=== PATIENT | female | born 1955 | race Caucasian/White ===

== ENCOUNTER 2017-08-23 06:10 | Observation (INO) | payer BC ==
[~2017-08-23] VITALS: Ht 154.9 cm; Wt 79.3 kg
[2017-08-23] VITALS (13 sets, daily range): BP systolic 99–174; BP diastolic 65–101; PULSE 65–110; RESP 14–22; TEMP 98–99.6; O2SAT 89–95
[2017-08-23] MEDS ORDERED: SODIUM CHLORIDE 0.9% FLUSH 10 ML FLUSH IVF PRN (06:30)
[2017-08-23] MEDS ORDERED: ONDANSETRON HCL 4 MG/2 ML VIAL IV PUSH ONE (06:30)
[2017-08-23] MEDS: NITROGLYCERIN 0.4 MG SL 25 TABS/BTL SL SCH ×3 (06:40→06:46)
[2017-08-23] MEDS: SODIUM CHLOR 0.9% 1000 ML INJ 1,000 ML IV SCH ×2 (06:47→16:30)
[2017-08-23 06:57] LABS: CHLORIDE 107 MEQ/L (98-107); SODIUM (NA) 143 MEQ/L (136-145)
[2017-08-23 07:00] LABS: ALBUMIN 3.9 GM/DL (3.4-5.0); BICARBONATE 30.2 MEQ/L (21.0-32.0); CALCIUM 9.1 MG/DL (8.5-10.1)
--- NOTE | 2017-08-23 07:00 | PD ---
HPI Chief Complaint: Chest pain Time Seen by Provider: 06:29 Travel History International Travel<30 days: No Contact w/Intl Traveler<30days: No Traveled to known affect area: No History of Present Illness HPI 62-year-old female presents to the emergency department by private transportation the care of her spouse for complaint of upper chest pain and throat pain radiating into her upper back. Symptoms awaken her from sleep at 2 AM. Patient denies any shortness of breath sweats referred shoulder arm or abdominal pain but does complain of neck pain and upper back pain. Patient is visiting from out of town and will be in the area for 2 months. Patient denies any lower extremity pain or swelling. No personal history of hypertension dyslipidemia diabetes tobaccoism or clotting disorder. Patient does report history of esophageal spasm and hiatal hernia. Patient's had no recent respiratory illness or productive cough or fever. Patient rates pain 8/10 in intensity. Patient has taken Tums without relief. Patient is allergic to aspirin causes anaphylaxis. PFSH Past Medical History Narrative Medical GERD, hiatal hernia; no tobacco use; nursing notes reviewed Social History Tobacco Use: No Allergies-Medications (Allergen,Severity, Reaction): Coded Allergies: aspirin (Verified Allergy, Unknown, Anaphylaxis, 08/23/17) Reported Meds & Prescriptions Reported Meds & Active Scripts Active [place] (Hydrocodone-Acetaminophen) 5 Mg-325 Mg Tab 1 Tab PO Q6H PRN Reported Pantoprazole (Pantoprazole Sodium) 40 Mg Tab 40 Mg PO DAILY Symbicort Inh (Budesonide/Formoterol Fumarate) 80-4.5 Mcg/Act Aero 2 Puff INH Q12HR Narrative Medication None Review of Systems Except as stated in HPI: all other systems reviewed are Neg General / Constitutional: No: Fever, Chills HENT: No: Congestion Cardiovascular: Positive: Chest Pain or Discomfort, No: Diaphoresis Respiratory: No: Cough, Shortness of Breath Gastrointestinal: No: Nausea, Vomiting Genitourinary: No: Dysuria, Flank Pain Musculoskeletal: No: Myalgias, Arthralgias, Cramping, Edema, Pain Skin: No Rash Neurologic: No: Weakness Psychiatric: Positive: Anxiety Hematologic/Lymphatic: No: Lymph Node Enlargement Physical Exam Narrative GENERAL: Well-developed well-nourished female in no acute distress or respiratory distress although does mildly anxious SKIN: Warm and dry. HEAD: Normocephalic. EYES: No scleral icterus. No injection or drainage. NECK: Supple, trachea midline. No JVD or lymphadenopathy. CARDIOVASCULAR: Regular rate and rhythm without murmurs, gallops, or rubs. RESPIRATORY: Breath sounds equal bilaterally. No accessory muscle use. GASTROINTESTINAL: Abdomen soft, non-tender, nondistended. MUSCULOSKELETAL: No cyanosis, or edema. Radial dorsalis pedis pulses 2+ to palpation bilaterally BACK: Nontender without obvious deformity. No CVA tenderness. Data Data Last Documented VS Vital Signs Date Time Temp Pulse Resp B/P (MAP) Pulse Ox O2 Delivery O2 Flow Rate FiO2 08/23/17 08:15 126/75 (92) 08/23/17 07:05 92 Non-Rebreather 15.00 08/23/17 07:05 22 08/23/17 06:57 65 08/23/17 06:15 98.0 Orders Orders Electrocardiogram (08/23/17 06:29) Ckmb (Isoenzyme) Profile (08/23/17 06:29) Complete Blood Count With Diff (08/23/17 06:29) Comprehensive Metabolic Panel (08/23/17 06:29) Magnesium (Mg) (08/23/17 06:29) Prothrombin Time / Inr (Pt) (08/23/17 06:29) Act Partial Throm Time (Ptt) (08/23/17 06:29) Troponin I (08/23/17 06:29) Ecg Monitoring (08/23/17 06:29) Bilateral Bp Monitoring (08/23/17 06:29) Iv Access Insert/Monitor (08/23/17:29) Oximetry (08/23/17 06:29) Oxygen Administration (08/23/17 06:29) Sodium Chloride 0.9% Flush (Ns Flush) (08/23/17 06:30) Nitroglycerin Sl (Nitrostat Sl) (08/23/17 06:30) Chest, Pa & Lat (08/23/17 06:29) Sodium Chlor 0.9% 1000 Ml Inj (Ns 1000 M (08/23/17 06:30) Ondansetron Inj (Zofran Inj) (08/23/17 06:30) Sodium Chlor 0.9% 1000 Ml Inj (Ns 1000 M (08/23/17 07:15) B-Type Natriuretic Peptide (08/23/17 07:42) Ct Pulmonary Angiogram (08/23/17 07:46) Iohexol 350 Inj (Omnipaque 350 Inj) (08/23/17 08:15) Admit Order (Ed Use Only) (08/23/17 10:05) Labs Laboratory Tests Test 08/23/17 06:36 White Blood Count 12.1 TH/MM3 Red Blood Count 4.91 MIL/MM3 Hemoglobin 14.8 GM/DL Hematocrit 44.6 % Mean Corpuscular Volume 90.9 FL Mean Corpuscular Hemoglobin 30.1 PG Mean Corpuscular Hemoglobin Concent 33.1 % Red Cell Distribution Width 13.1 % Platelet Count 324 TH/MM3 Mean Platelet Volume 7.5 FL Neutrophils (%) (Auto) 81.7 % Lymphocytes (%) (Auto) 10.9 % Monocytes (%) (Auto) 5.2 % Eosinophils (%) (Auto) 1.8 % Basophils (%) (Auto) 0.4 % Neutrophils # (Auto) 10.0 TH/MM3 Lymphocytes # (Auto) 1.3 TH/MM3 Monocytes # (Auto) 0.6 TH/MM3 Eosinophils # (Auto) 0.2 TH/MM3 Basophils # (Auto) 0.0 TH/MM3 CBC Comment DIFF FINAL Differential Comment Prothrombin Time 9.8 SEC Prothromb Time International Ratio 1.0 RATIO Activated Partial Thromboplast Time 23.1 SEC Blood Urea Nitrogen 12 MG/DL Creatinine 0.68 MG/DL Random Glucose 107 MG/DL Total Protein 8.3 GM/DL Albumin 3.9 GM/DL Calcium Level 9.1 MG/DL Magnesium Level 2.1 MG/DL Alkaline Phosphatase 103 U/L Aspartate Amino Transf (AST/SGOT) 24 U/L Alanine Aminotransferase (ALT/SGPT) 36 U/L Total Bilirubin 0.5 MG/DL Sodium Level 143 MEQ/L Potassium Level 3.7 MEQ/L Chloride Level 107 MEQ/L Carbon Dioxide Level 30.2 MEQ/L Anion Gap 6 MEQ/L Estimat Glomerular Filtration Rate 88 ML/MIN Total Creatine Kinase 81 U/L Troponin I LESS THAN 0.02 NG/ML B-Type Natriuretic Peptide 37 PG/ML MDM Medical Decision Making Medical Screen Exam Complete: Yes Emergency Medical Condition: Yes Medical Record Reviewed: Yes Interpretation(s) EKG sinus tachycardia rate 104 left axis deviation no acute ST elevation or injury pattern artifact is present at baseline Differential Diagnosis Atypical chest pain chest pain ACS WV aortic dissection PE cholecystitis choledocholithiasis pancreatitis peptic ulcer disease Narrative Course Patient placed on cardiac exercise physiologist with continuous pulse oximetry IV access obtained specimens collected and sent for resulting patient allergic to aspirin therefore not administered sublingual nitroglycerin 0.4 mg ordered to be administered every 5 minutes as needed for ongoing chest pain however is to hold for systolic pressure less than 100 mmHg patient has maintenance IV fluids at bedside should she become symptomatic or hypotensive after nitroglycerin. Patient after 2 nitroglycerin is chest pain-free 0/10 intensity however noted that her saturations decreased to 85% therefore was placed on nasal cannula without significant improvement and supplementally placed on nonrebreather mask ; no history of COPD prior history of asthma and will evaluate with CT pulmonary angiogram for PE. Care signed over to Dr. Palma Scripts Hydrocodone-Acetaminophen ([place]) 5 Mg-325 Mg Tab 1 TAB PO Q6H Y for PAIN, #12 TAB 0 Refills Prov: Mike Bermudez 08/23/17 Dorothy Valdez MD Aug 23, 2017 07:00
[2017-08-23 07:01] LABS: BLOOD UREA NITROGEN 12 MG/DL (7-18); GLUCOSE,RANDOM 107 MG/DL (74-106); MAGNESIUM 2.1 MG/DL (1.5-2.5); PROTHROMBIN TIME - PATIENT 9.8 SEC (9.8-11.6)
[2017-08-23 07:03] LABS: ALT (GPT) 36 U/L (10-53); AST (GOT) 24 U/L (15-37)
[2017-08-23 07:04] LABS: CREATININE 0.68 MG/DL (0.50-1.00); GLOMERULAR FILTRATION RATE 88 ML/MIN (>89)
[2017-08-23 07:05] LABS: TOTAL BILIRUBIN ADULT 0.5 MG/DL (0.2-1.0); TOTAL PROTEIN 8.3 GM/DL (6.4-8.2)
[2017-08-23] MEDS ORDERED: SYMB80AE INH (07:05)
[2017-08-23] MEDS ORDERED: PANT40TA3 PO (07:05)
[2017-08-23 07:06] LABS: ALKALINE PHOSPHATASE 103 U/L (45-117)
[2017-08-23 07:09] LABS: TROPONIN I LESS THAN 0.02 NG/ML (0.02-0.05)
[2017-08-23 07:10] LABS: BASOPHIL % 0.4 % (0.0-2.0); EOSINOPHIL # 0.2 TH/MM3 (0-0.4); EOSINOPHIL % 1.8 % (0.0-4.0); HEMATOCRIT 44.6 % (35.0-46.0); HEMOGLOBIN 14.8 GM/DL (11.6-15.3); LYMPH % 10.9 % (9.0-44.0); LYMPHOCYTE # 1.3 TH/MM3 (1.0-4.8); MEAN CELL VOLUME 90.9 FL (80.0-100.0); MEAN CORPUSCULAR HEMOGLOBIN 30.1 PG (27.0-34.0); MEAN CORPUSCULAR HGB CONC 33.1 % (32.0-36.0); MEAN PLATELET VOLUME 7.5 FL (7.0-11.0); MONO % 5.2 % (0.0-8.0); MONOCYTE # 0.6 TH/MM3 (0-0.9); NEUT % 81.7 % (16.0-70.0); PLATELET COUNT 324 TH/MM3 (150-450); RED BLOOD COUNT 4.91 MIL/MM3 (4.00-5.30); RED CELL DISTRIBUTION WIDTH 13.1 % (11.6-17.2); WHITE BLOOD COUNT 12.1 TH/MM3 (4.0-11.0)
[2017-08-23] MEDS ORDERED: SODIUM CHLOR 0.9% 1000 ML INJ 1,000 ML IV ONE (07:15)
--- NOTE | 2017-08-23 07:40 | RADRPT ---
EXAM DATE/TIME: 08/23/2017 06:39 [facility] COMPARISON: No previous studies available for comparison. INDICATIONS : Chest pain MEDICAL HISTORY : None. SURGICAL HISTORY : None. ENCOUNTER: Initial ACUITY: 1 day PAIN SCORE: 7/10 LOCATION: chest FINDINGS: There are atelectatic changes at the lung bases and cardiomegaly. No definite consolidation or effusi on. Osseous structures are intact. CONCLUSION: Mild basilar atelectatic changes. Kishor Naik MD on August 23, 2017 at 7:38 Board Certified Radiologist. This report was verified electronically.
[2017-08-23] MEDS ORDERED: IOHEXOL 350 MG/ML 10 ML VIAL (for RAD DIAG) IVCONTRAST ONE (08:15)
--- NOTE | 2017-08-23 08:36 | RADRPT ---
EXAM DATE/TIME: 08/23/2017 08:06 [facility] COMPARISON: No previous studies available for comparison. INDICATIONS : Chest pain and short of breath. IV CONTRAST: 65 cc Omnipaque 350 (iohexol) IV RADIATION DOSE: 16.37 CTDIvol (mGy) MEDICAL HISTORY : Asthma SURGICAL HISTORY : None. ENCOUNTER: Initial ACUITY: 1 day PAIN SCALE: 2/10 LOCATION: chest TECHNIQUE: Volumetric scanning of the chest was performed using a pulmonary embolism protocol MIP images were re constructed. Using automated exposure control and adjustment of the mA and/or kV according to patien t size, radiation dose was kept as low as reasonably achievable to obtain optimal diagnostic quality images. DICOM format image data is available electronically for review and comparison. Follow-up recommendations for detected pulmonary nodules are based at a minimum on nodule size and pa tient risk factors according to Fleischner Society Guidelines. FINDINGS: Minimal bibasilar clinical changes. There is no axillary adenopathy. There is no mediastinal adenopathy. There is no evidence of centra l pulmonary emboli Abdominal contents are unremarkable Review of bone windows reveals mild degenerative changes. CONCLUSION: Bibasilar parenchymal changes, no pulmonary emboli.. Ricki Arnett MD FACR on August 23, 2017 at 8:32 Board Certified Radiologist. This report was verified electronically.
--- NOTE | 2017-08-23 09:05 | PD ---
HPI Chief Complaint: Cardiac Complaint Time Seen by Provider: 07:45 Travel History International Travel<30 days: No Contact w/Intl Traveler<30days: No Traveled to known affect area: No History of Present Illness HPI 62-year-old female had presented with complaint of chest pain. She was seen initially by Dr. Valdez. Her EKG showed a normal sinus rhythm. Her troponin was normal. She did have some periods of hypoxia and a CTA has also been done which has been read as negative. The patient's pain responded well to nitrates. Plan was to admit the patient to the chest pain center for further evaluation of her chest pain the pain she had was in the upper chest. Patient thinks that this may be esophageal pain. She does have occasional dysphasia and feels like it was in the upper chest. PFSH Past Medical History Asthma: Yes Tetanus Vaccination: Unknown Influenza Vaccination: No Social History Alcohol Use: Yes (occ) Tobacco Use: No (quit 15 yrs ago) Substance Use: No Allergies-Medications (Allergen,Severity, Reaction): Coded Allergies: aspirin (Verified Allergy, Unknown, Anaphylaxis, 08/23/17) Reported Meds & Prescriptions Reported Meds & Active Scripts Active Reported Pantoprazole (Pantoprazole Sodium) 40 Mg Tab 40 Mg PO DAILY Symbicort Inh (Budesonide/Formoterol Fumarate) 80-4.5 Mcg/Act Aero 2 Puff INH Q12HR Physical Exam Narrative per Dr. Valdez's note Data Data Last Documented VS Vital Signs Date Time Temp Pulse Resp B/P (MAP) Pulse Ox O2 Delivery O2 Flow Rate FiO2 08/23/17 08:15 126/75 (92) 08/23/17 07:05 92 Non-Rebreather 15.00 08/23/17 07:05 22 08/23/17 06:57 65 08/23/17 06:15 98.0 Orders Orders Electrocardiogram (08/23/17 06:29) Ckmb (Isoenzyme) Profile (08/23/17 06:29) Complete Blood Count With Diff (08/23/17 06:29) Comprehensive Metabolic Panel (08/23/17 06:29) Magnesium (Mg) (08/23/17 06:29) Prothrombin Time / Inr (Pt) (08/23/17 06:29) Act Partial Throm Time (Ptt) (08/23/17 06:29) Troponin I (08/23/17 06:29) Ecg Monitoring (08/23/17 06:29) Bilateral Bp Monitoring (08/23/17 06:29) Iv Access Insert/Monitor (08/23/17 06:29) Oximetry (08/23/17 06:29) Oxygen Administration (08/23/17 06:29) Sodium Chloride 0.9% Flush (Ns Flush) (08/23/17 06:30) Nitroglycerin Sl (Nitrostat Sl) (08/23/17 06:30) Chest, Pa & Lat (08/23/17 06:29) Sodium Chlor 0.9% 1000 Ml Inj (Ns 1000 M (08/23/17 06:30) Ondansetron Inj (Zofran Inj) (08/23/17 06:30) Sodium Chlor 0.9% 1000 Ml Inj (Ns 1000 M (08/23/17 07:15) B-Type Natriuretic Peptide (08/23/17 07:42) Ct Pulmonary Angiogram (08/23/17 07:46) Iohexol 350 Inj (Omnipaque 350 Inj) (08/23/17 08:15) Admit Order (Ed Use Only) (08/23/17 10:05) Labs Laboratory Tests Test 08/23/17 06:36 White Blood Count 12.1 TH/MM3 Red Blood Count 4.91 MIL/MM3 Hemoglobin 14.8 GM/DL Hematocrit 44.6 % Mean Corpuscular Volume 90.9 FL Mean Corpuscular Hemoglobin 30.1 PG Mean Corpuscular Hemoglobin Concent 33.1 % Red Cell Distribution Width 13.1 % Platelet Count 324 TH/MM3 Mean Platelet Volume 7.5 FL Neutrophils (%) (Auto) 81.7 % Lymphocytes (%) (Auto) 10.9 % Monocytes (%) (Auto) 5.2 % Eosinophils (%) (Auto) 1.8 % Basophils (%) (Auto) 0.4 % Neutrophils # (Auto) 10.0 TH/MM3 Lymphocytes # (Auto) 1.3 TH/MM3 Monocytes # (Auto) 0.6 TH/MM3 Eosinophils # (Auto) 0.2 TH/MM3 Basophils # (Auto) 0.0 TH/MM3 CBC Comment DIFF FINAL Differential Comment Prothrombin Time 9.8 SEC Prothromb Time International Ratio 1.0 RATIO Activated Partial Thromboplast Time 23.1 SEC Blood Urea Nitrogen 12 MG/DL Creatinine 0.68 MG/DL Random Glucose 107 MG/DL Total Protein 8.3 GM/DL Albumin 3.9 GM/DL Calcium Level 9.1 MG/DL Magnesium Level 2.1 MG/DL Alkaline Phosphatase 103 U/L Aspartate Amino Transf (AST/SGOT) 24 U/L Alanine Aminotransferase (ALT/SGPT) 36 U/L Total Bilirubin 0.5 MG/DL Sodium Level 143 MEQ/L Potassium Level 3.7 MEQ/L Chloride Level 107 MEQ/L Carbon Dioxide Level 30.2 MEQ/L Anion Gap 6 MEQ/L Estimat Glomerular Filtration Rate 88 ML/MIN Total Creatine Kinase 81 U/L Troponin I LESS THAN 0.02 NG/ML B-Type Natriuretic Peptide 37 PG/ML MDM Medical Decision Making Medical Screen Exam Complete: Yes Emergency Medical Condition: Yes Medical Record Reviewed: Yes Differential Diagnosis Differential includes esophagitis, coronary artery disease, pulmonary embolus Narrative Course CTA is negative for PE. EKG shows sinus rhythm. Troponin is negative. Plan is to admit her to the chest pain center Diagnosis Primary Impression: Chest pain Admitting Information Admitting Physician Requests: Observation Cortez Jay MD Aug 23, 2017 09:05
[2017-08-23] MEDS ORDERED: REGADENOSON INJ 0.4 MG/5 ML SYR IV ONE (10:07)
[2017-08-23] MEDS ORDERED: SODIUM CHLOR 0.9% 1000 ML INJ 1,000 ML IV SCH (10:08)
[2017-08-23] MEDS ORDERED: SODIUM CHLORIDE 0.9% FLUSH 10 ML FLUSH IV FLUSH PRN (10:15)
[2017-08-23 11:02] LABS: TROPONIN I LESS THAN 0.02 NG/ML (0.02-0.05)
[2017-08-23] MEDS ORDERED: ONDANSETRON HCL 4 MG/2 ML VIAL IV PUSH PRN (12:00)
[2017-08-23 13:39] LABS: TROPONIN I LESS THAN 0.02 NG/ML (0.02-0.05)
--- NOTE | 2017-08-23 14:53 | EKG ---
Date Performed: 08/23/2017 Time Performed: 12:56:58 PTAGE: 62 years EKG: SINUS TACHYCARDIA BORDERLINE LEFT AXIS DEVIATION ABNORMAL RHYTHM ECG No significant change from prior electrocardiogram. PREVIOUS TRACING : 08/23/2017 10.20 DOCTOR: Dickson Tyson Interpretating Date/Time 08/23/2017 14:51:47
--- NOTE | 2017-08-23 15:31 | EKG ---
Date Performed: 08/23/2017 Time Performed: 10:20:36 PTAGE: 62 years EKG: ATRIAL FLUTTER/TACHYCARDIA WITH RAPID VENTRICULAR RESPONSE Since the previous tracing, no s ignificant change noted ABNORMAL RHYTHM ECG PREVIOUS TRACING : 08/23/2017 06.24 DOCTOR: Tyler Ny Interpretating Date/Time 08/23/2017 15:23:48
--- NOTE | 2017-08-23 15:31 | EKG ---
Date Performed: 08/23/2017 Time Performed: 06:24:16 PTAGE: 62 years EKG: SINUS TACHYCARDIA MARKED LEFT AXIS DEVIATION PATTERN CONSISTENT WITH PULMONARY DISEASE ABNO RMAL ECG NO PREVIOUS TRACING DOCTOR: Tyler Ny Interpretating Date/Time 08/23/2017 15:23:38
--- NOTE | 2017-08-23 17:22 | RADRPT ---
EXAM DATE/TIME: 08/23/2017 15:57 [facility] COMPARISON: No previous studies available for comparison. INDICATIONS : Upper chest and back pain for one day. Angina. DOSE: 26.3 mCi Tc99m Myoview at stress. 8.5 mCi Tc99m Myoview at rest. 0.4 mg Lexiscan STRESS SYMPTOMS: Dyspnea, dizziness and facial flush. EJECTION FRACTION: 60% MEDICAL HISTORY : Gastroesophageal reflux disease. Asthma. SURGICAL HISTORY : Umbilical hernia repair. Left hip. ENCOUNTER: Initial ACUITY: 1 day PAIN SCALE: 7/10 LOCATION: Midsternal chest TECHNIQUE: The patient underwent pharmacologic stress with infusion of prescribed dose. Continuous ECG tracing was monitored during stress. Gated SPECT imaging was performed after stress and conventional SPECT i maging was performed at rest. The examination was performed on a SPECT/CT scanner, both attenuation and non-corrected datasets were reviewed. FINDINGS: DISTRIBUTION: The maximum perfused segment at stress is in the lateral wall. PERFUSION STUDY: The pattern of perfusion at stress is within normal limits. GATED STUDY: There is intact wall motion and thickening without hypokinetic or dyskinetic segments. CONCLUSION: 1. No evidence for significant stress-induced ischemia. 2. Intact wall motion with EF of 60%. RISK CATEGORY: Low (<1% Annual Mortality Rate) Vasu Marte MD on August 23, 2017 at 17:14 Board Certified Radiologist. This report was verified electronically.
[2017-08-23] MEDS ORDERED: NORC5TAB PO (17:24)
--- NOTE | 2017-08-23 17:25 | HHI.DCPOC ---
Discharge Care Plan Diagnosis: (1) Chest pain Goals to Promote Your Health * To prevent worsening of your condition and complications * To maintain your health at the optimal level Directions to Meet Your Goals Take your medications as prescribed Follow your dietary instruction Follow activity as directed Keep your appointments as scheduled Take your immunizations and boosters as scheduled If your symptoms worsen call your PCP, if no PCP go to Urgent Care Center or Emergency Room Smoking is Dangerous to Your Health. Avoid second hand smoke Call the 24-hour hour crisis hotline for domestic abuse at Mike Bermudez Aug 23, 2017 17:25
--- NOTE | 2017-08-23 18:18 | HHI.HP ---
[facility] Non-Staff Admission Diagnosis CHEST PAIN Diagnoses: (1) Chest pain Chief Complaint: Chest pain Travel History International Travel<30 Days: No Contact w/Intl Traveler <30 Da: No Traveled to Known Affected Are: No History of Present Illness Written by Mike Bermudez, acting as scribe for Dr. Parmar on 08/23/17 at 18: 12. 62-year-old female with known history of asthma, hiatal hernia, gastroesophageal reflux, history of tobacco use who presented to the hospital for exacerbation of chronic chest pain. Patient normally lives in [facility] and she is down here visiting and planning on buying house. Patient states that she has been experiencing chest pain over the last 2 years that has gotten progressively worse, she indicates that she has had workup up in [place] which believes that it might be GI related with hiatal hernia, gastroesophageal reflux. Patient states that the pain is located in the upper chest and radiates into her neck and back area. The patient did try to use her inhaler as well as baking soda without any relief. She describes as a pressure type pain which was 10/10 on a pain scale. She states that the pain started at 2 AM this morning and did not improve so she came to emergency department for evaluation. She states that the pain is worse with movement and taking a deep breath. She denies any fever, chills, nausea vomiting, lightheadedness, dizziness, diaphoresis, shortness of breath, dyspnea. She has had a cough. Patient came to emergency department for evaluation and was given nitroglycerin which did help her discomfort, however it is still antagonized by movement. Because of the patient's symptoms is recommended by ER physician that the patient be observed in the chest pain center for further evaluation and management. Of note, pt states that she was told that she could have esophageal spasms however she never was worked-up for this as an outpatient. Review of Systems Respiratory: COMPLAINS OF: Cough Cardiovascular: COMPLAINS OF: Chest pain Except as stated in HPI: all other systems reviewed are Neg Past Family Social History Past Medical History Hiatal hernia Gastrosoft reflux History of asthma Seasonal allergies Past Surgical History Left hip replacement Reported Medications Reported Meds & Active Scripts Active [place] (Hydrocodone-Acetaminophen) 5 Mg-325 Mg Tab 1 Tab PO Q6H PRN Reported Pantoprazole (Pantoprazole Sodium) 40 Mg Tab 40 Mg PO DAILY Symbicort Inh (Budesonide/Formoterol Fumarate) 80-4.5 Mcg/Act Aero 2 Puff INH Q12HR Allergies: Coded Allergies: aspirin (Verified Allergy, Unknown, Anaphylaxis, 08/23/17) Family History Reviewed his significant father having lung cancer and hiatal hernia. Mother at age 83 with history of bladder cancer and heavy smoker Social History Patient quit smoking 15 years ago. She drinks alcohol rarely, denies any illicit drugs Physical Exam Vital Signs Vital Signs Date Time Temp Pulse Resp B/P (MAP) Pulse Ox O2 Delivery O2 Flow Rate FiO2 08/23/17 17:27 99.6 99 16 135/90 (105) 92 08/23/17 12:55 99.6 108 16 142/93 (109) 92 08/23/17 11:56 111 16 133/90 (104) Nasal Cannula 2.00 08/23/17 11:55 95 Nasal Cannula 2.00 08/23/17 10:53 110 16 147/89 (108) 95 Nasal Cannula 2.00 08/23/17 08:15 126/75 (92) 08/23/17 07:15 125/80 (95) 08/23/17 07:05 92 Non-Rebreather 15.00 08/23/17 07:05 22 92 Room Air 08/23/17 07:05 92 Room Air 08/23/17 06:57 65 101/67 (78) 99/65 (76) 08/23/17 06:52 77 14 105/71 (82) 89 Nasal Cannula 4.00 08/23/17 06:50 18 08/23/17 06:47 95 16 134/80 (98) 93 Nasal Cannula 4.00 08/23/17 06:42 96 18 157/99 (118) 94 Nasal Cannula 2.00 08/23/17 06:15 98.0 110 20 174/101 (125) 90 Physical Exam GENERAL: Well-developed, well-nourished, in no acute distress. alert and orientated HEENT: Head is normocephalic. Eyes: Pupils equal round reactive to light. Extraocular muscles are intact. Conjunctivae were clear. Oropharyngeal: Pharynx without any erythema edema. Tongue is midline without deviation. Buccal mucosa is moist without any masses or lesions NECK: Supple without any masses. Trachea midline no deviation. CARDIAC: Regular rhythm, regular rate. No murmurs . unable to reproduce pain w palpation of chest LUNGS: Clear to auscultation bilaterally. No wheeze. No use of accessory muscles on inspiration or expiration. ABDOMEN: Soft, nontender. Nondistended. Bowel sounds heard in all 4 quadrants. EXTREMITIES: No edema, pulses are equal bilaterally NEUROLOGY: Mood and affect appear appropriate. Muscle strength 5/5 in upper and lower extremities bilaterally. Laboratory Laboratory Tests Test 08/23/17 06:36 08/23/17 10:40 08/23/17 12:45 White Blood Count 12.1 Red Blood Count 4.91 Hemoglobin 14.8 Hematocrit 44.6 Mean Corpuscular Volume 90.9 Mean Corpuscular Hemoglobin 30.1 Mean Corpuscular Hemoglobin Concent 33.1 Red Cell Distribution Width 13.1 Platelet Count 324 Mean Platelet Volume 7.5 Neutrophils (%) (Auto) 81.7 Lymphocytes (%) (Auto) 10.9 Monocytes (%) (Auto) 5.2 Eosinophils (%) (Auto) 1.8 Basophils (%) (Auto) 0.4 Neutrophils # (Auto) 10.0 Lymphocytes # (Auto) 1.3 Monocytes # (Auto) 0.6 Eosinophils # (Auto) 0.2 Basophils # (Auto) 0.0 CBC Comment DIFF FINAL Differential Comment Prothrombin Time 9.8 Prothromb Time International Ratio 1.0 Activated Partial Thromboplast Time 23.1 Blood Urea Nitrogen 12 Creatinine 0.68 Random Glucose 107 Total Protein 8.3 Albumin 3.9 Calcium Level 9.1 Magnesium Level 2.1 Alkaline Phosphatase 103 Aspartate Amino Transf (AST/SGOT) 24 Alanine Aminotransferase (ALT/SGPT) 36 Total Bilirubin 0.5 Sodium Level 143 Potassium Level 3.7 Chloride Level 107 Carbon Dioxide Level 30.2 Anion Gap 6 Estimat Glomerular Filtration Rate 88 Total Creatine Kinase 81 63 58 Troponin I LESS THAN 0.02 LESS THAN 0.02 LESS THAN 0.02 B-Type Natriuretic Peptide 37 Result Diagram: 08/23/17 0636 08/23/17 [address] Angiography 08/23/17 0746 Signed Impressions: Service Date/Time: Wednesday, August 23, 2017 08:06 - CONCLUSION: Bibasilar parenchymal changes, no pulmonary emboli.. Ricki Arnett MD FACR Chest X-Ray 08/23/17 0629 Signed Impressions: Service Date/Time: Wednesday, August 23, 2017 06:39 - CONCLUSION: Mild basilar atelectatic changes. Kishor Naik MD Myocardial Perfusion Scan [facility] 08/23/17 0000 Signed Impressions: Service Date/Time: Wednesday, August 23, 2017 15:57 - CONCLUSION: 1. No evidence for significant stress-induced ischemia. 2. Intact wall motion with EF of 60%% . RISK CATEGORY: Low (<1%% Annual Mortality Rate) MD Roxane Harrison VTE Risk Assessment Roxane VTE Risk Assessment: Mod/High Risk (score >= 2) Caprini Risk Assessment Model Point Value = 1 Point Value = 2 Point Value = 3 Point Value = 5 Age 41-60 Minor surgery BMI > 25 kg/m2 Swollen legs Varicose veins or History of unexplained or recurrent spontaneous Oral contraceptives or hormone replacement Sepsis (< 1 month) Serious lung disease, including pneumonia (< 1 month) Abnormal pulmonary function Acute myocardial infarction Congestive heart failure (< 1 month) History of inflammatory bowel disease Medical patient at bed rest Age 61-74 Arthroscopic surgery Major open surgery (> 45 min) Laparoscopic surgery (> 45 min) Malignancy Confined to bed (> 72 hours) Immobilizing plaster cast Central venous access Age >= 75 History of VTE Family history of VTE Factor V Leiden Prothrombin [id number] Lupus anticoagulant Anticardiolipin antibodies Elevated serum homocysteine Heparin-induced thrombocytopenia Other congenital or acquired thrombophilia Stroke (< 1 month) Elective arthroplasty Hip, pelvis, or leg fracture Acute spinal cord injury (< 1 month) Prophylaxis Regimen Total Risk Factor Score Risk Level Prophylaxis Regimen 0-1 Low Early ambulation 2 Moderate Order ONE of the following: *Sequential Compression Device (SCD) *Heparin 5000 units SQ BID 3-4 Higher Order ONE of the following medications: *Heparin 5000 units SQ TID *Enoxaparin/Lovenox 40 mg SQ daily (WT < 150 kg, CrCl > 30 mL/min) *Enoxaparin/Lovenox 30 mg SQ daily (WT < 150 kg, CrCl > 10-29 mL/min) *Enoxaparin/Lovenox 30 mg SQ BID (WT < 150 kg, CrCl > 30 mL/min) AND/OR *Sequential Compression Device (SCD) 5 or more Highest Order ONE of the following medications: *Heparin 5000 units SQ TID (Preferred with Epidurals) *Enoxaparin/Lovenox 40 mg SQ daily (WT < 150 kg, CrCl > 30 mL/min) *Enoxaparin/Lovenox 30 mg SQ daily (WT < 150 kg, CrCl > 10-29 mL/min) *Enoxaparin/Lovenox 30 mg SQ BID (WT < 150 kg, CrCl > 30 mL/min) AND *Sequential Compression Device (SCD) Assessment and Plan Assessment and Plan Chest pain, atypical Patient with increased risk factors include age, history of tobacco use Patient has been ruled out for acute coronary event with serial cardiac enzymes are negative Serial cardiac EKGs were reviewed which did not indicate any acute changes Myocardial perfusion study was performed which was negative for any ischemia , low risk Continue aspirin, nitroglycerin as needed Hiatal hernia, gastroesophageal reflux Patient's symptoms may be secondary to GI etiology, such as esophageal spasm Recommended the patient that she should follow-up with her primary call for GI consultation and likely need endoscopy. Pt agreeable w plan DVT prevention Sequential compression devices Discharge disposition Discharge home in stable condition Activity: Ad tato. Diet: Healthy heart diet Medication per medication reconciliation Follow-up with primary medical doctor in 1 week This note was transcribed by adelia Bermudez. I, Dr. Josefina Parmar personally performed the history, physical exam, and medical decision making; and confirmed the accuracy of the information in the transcribed note. Authenticated by Dr. Josefina Parmar on 08/23/17 at 18:12. Problem Qualifiers (1) Chest pain: Qualified Codes: R07.9 - Chest pain, unspecified Mike Bermudez Aug 23, 2017 18:18 Josefina Parmar MD Aug 23, 2017 19:22
[2017-08-23] MEDS ORDERED: SODIUM CHLORIDE 0.9% FLUSH 10 ML FLUSH IV FLUSH SCH (21:00)
[2017-08-24] MEDS ORDERED: ASPIRIN 325 MG TAB PO SCH (09:00)
--- NOTE | 2017-08-24 17:11 | TR ---
Date Performed: 08/23/2017 Time Performed: 16:25:15 DOCTOR: Saray Holley DRUG LIST: CLINICAL HISTORY: ANGINA REASON FOR TEST: Angina REASON FOR ENDING: OBSERVATION: CONCLUSION: Lexiscan stress test was performed under standard four minute protocol. Radionuclid e was injected one minute prior to ending the test. No electrocardiographic abormalities were present to suggest ischemia. Nuclear imaging and interpretation are pending. COMMENTS:
== END 2017-08-23 18:04 | disposition home or self-care (01) ==
LOC: PHED 06:10 → PHEDA 10:06 → PH3A 12:21
PROVIDERS: ADMIT Hospitalist; ATTEND Hospitalist
DX: R07.89 Other chest pain (principal); K21.9 Gastro-esophageal reflux disease without esophagitis; K22.4 Dyskinesia of esophagus; K44.9 Diaphragmatic hernia without obstruction or gangrene; R07.0 Pain in throat; M54.6 Pain in thoracic spine; M54.2 Cervicalgia; R09.02 Hypoxemia; R47.02 Dysphasia; J45.909 Unspecified asthma, uncomplicated; G89.29 Other chronic pain; Z88.6 Allergy status to analgesic agent; R94.31 Abnormal electrocardiogram [ECG] [EKG]; R06.02 Shortness of breath; Z87.891 Personal history of nicotine dependence; Z96.642 Presence of left artificial hip joint
CPT/HCPCS: 71046; 71275; 78452; 80053; 82550; 83735; 83880; 84484; 85025; 85610; 85730; 93005; 93017; 96361; 96374; 99285; A9502; G0378; J2405; J2785; J7030; Q9967